=== PATIENT | female | born 1970 | race Caucasian/White ===

== ENCOUNTER 2020-03-14 12:53 | Outpatient (CLI) | payer OTHER, SELFPAY ==
--- NOTE | 2020-03-14 13:06 | XR_ITS ---
WS: [id number] CERVICAL SPINE TECHNIQUE: 3 views of the cervical spine CLINICAL INFORMATION: CERVICAL SPINE PAIN COMPARISON: None. FINDINGS: Straightening of the normal cervical lordosis. Normal C1-2 articulation. Slight anterolisthesis C4 on C5 measuring 1.6 mm. Normal prevertebral soft tissues. Mild cervical curve convex left. Mild facet a rthropathy. Normal C1-2 articulation. XR/XR cervical spine 3V* [id number] IMPRESSION: 1. Straightening of the normal cervical lordosis with mild spondylitic changes . 2. Minimal disc space narrowing C5-C6 and C6-C7. 3. Trace anterolisthesis C4 on C5 measuring 1.6mm 4. Mild facet arthropathy mid thoracic spine. 5. No other significant findings.
--- NOTE | 2020-03-14 13:06 | XR_ITS ---
WS: [id number] THORACIC SPINE TECHNIQUE: 3 views of the thoracic spine CLINICAL INFORMATION: BACK PAIN, THORACIC COMPARISON: None. FINDINGS: Mild thoracic curve convex right in the mid thoracic spine. No acute appearing compression fractures. Disc space heights and vertebral body heights are well preserved. Visualized lungs are well aerated. XR/XR thoracic spine 3V* [id number] IMPRESSION: Mild thoracic curve convex right. No acute thoracic spine findings.
== END 2020-03-14 12:54 | disposition home or self-care (01) ==
PROVIDERS: Family Provider Family Medicine; PCP Nurse Practitioner Family; Visit Provider Family Medicine
DX: M54.6 Pain in thoracic spine (principal); M54.2 Cervicalgia; M47.814 Spondylosis without myelopathy or radiculopathy, thoracic region
CPT/HCPCS: 72040; 72072

== ENCOUNTER 2020-04-07 08:40 | Outpatient (CLI) | payer OTHER, SELFPAY ==
--- NOTE | 2020-04-07 08:42 | MM_ITS ---
WS: [id number] SCREENING DIGITAL MAMMOGRAM WITH CAD HISTORY: SCREENING COMPARISON: 12/13/2015 Bilateral CC and MLO views submitted. Computer aided detection analyzed. Breast composition: There are scattered areas of fibroglandular density. Increasing density and calci fication upper-outer quadrant of the LEFT breast. There are scattered ill-defined calcifications now present within this area of increasing density. Mild distortion suspected on the CC projection. Other stiles normal parenchyma. LEFT breast: Spot compression views (CC and MLO). True ML. Ultrasound to follow if abnormality perskmailah ts. Additional magnification views LEFT breast upper outer quadrant. MM/[place] [id number] IMPRESSION: BI-RADS: 0-Incomplete: Need additional imaging evaluation FOLLOW UP: Need Additional Imaging
== END 2020-04-07 08:41 | disposition home or self-care (01) ==
LOC: RADSHAW 08:40
PROVIDERS: PCP Family Medicine; Visit Provider Family Medicine
DX: Z12.31 Encounter for screening mammogram for malignant neoplasm of breast (principal); R92.1 Mammographic calcification found on diagnostic imaging of breast
CPT/HCPCS: 77067

== ENCOUNTER 2020-04-29 09:43 | Outpatient (CLI) | payer OTHER, SELFPAY ==
--- NOTE | 2020-04-29 10:02 | US_ITS ---
WS: [id number] ADDITIONAL VIEWS LEFT MAMMOGRAM LEFT BREAST ULTRASOUND HISTORY: ABNORMAL MAMMO COMPARISON: 12/13/2015 LEFT MAMMOGRAM: Spot compression views and true ML. Focal asymmetry persists in the upper outer quadrant. Asymmetry appears slightly more prominent than on the prior studies. There are also calcifications within this asymmetry which have increased in siz e and number. No nipple retraction. LEFT BREAST ULTRASOUND 2-D and color Doppler imaging submitted. Ultrasound directed to the upper outer quadrant of the LEFT breast. Near 12:00, 1 cm from the nipple is a hypoechoic area measuring 8 x 4 x 5 mm with no increased vascularity. Dense fibroglandular tissu e with a few cystic areas in the upper outer quadrant towards the axillary tail. 2. Ultrasound-guided biopsy recommended of the ovoid hypoechoic nodule at 12:00, 1 cm from the nippl e. Notified Fer Harris Jr, MD at 04/29/2020 1:48 PM. Spoke with Carmita. US/US breast LT limited* [id number] IMPRESSION: BI-RADS: 4B-Suspicious: Intermediate FOLLOW UP: Biopsy Recommended 1. Stereotactic biopsy recommended of the LEFT breast calcifications in the up per outer quadrant.
== END 2020-04-29 09:44 | disposition home or self-care (01) ==
LOC: RADSHAW 09:47
PROVIDERS: PCP Family Medicine; Visit Provider Family Medicine
DX: R92.1 Mammographic calcification found on diagnostic imaging of breast (principal); N64.89 Other specified disorders of breast; N63.25 Unspecified lump in the left breast, overlapping quadrants
CPT/HCPCS: 76642; 77065

== ENCOUNTER 2020-05-11 12:14 | Outpatient (CLI) | payer OTHER, SELFPAY ==
--- NOTE | 2020-05-11 12:21 | MM_ITS ---
WS: [id number] STEREOTACTIC LEFT BREAST BIOPSY WITH VACUUM ASSISTANCE HISTORY: LT BREAST NODULE COMPARISON: 04/29/2020, 04/07/2020 Procedure, risks and complications were explained to the patient. Medications and prior radiographs a re reviewed. LEFT breast breast increased density with calcifications upper outer quadrant is located. Calcificati ons and dense fibroglandular tissue is targeted in the craniocaudal projection. The skin is cleansed with ChloraPrep and anesthetized with 1% buffered lidocaine. Deeper soft tissues anesthetized with a combination of lidocaine and epinephrine. Small dermatome is made. Needle advanced into the breast. S tereotactic imaging reveals appropriate positioning adjacent calcifications. Multiple vacuum-assisted core biopsies are obtained. Biopsy was performed in 2 separate areas of this dense fibroglandular ti ssue. No complications were encountered. Post biopsy specimen radiograph reveals very few scattered calcifications. Single biopsy clip is placed in the cavity. Post imaging reveals good placement of the clip. No migra tion. Pressures held for approximately 15 minutes. No bleeding. Dressing applied. Patient discharged with n o complications. There is no bleeding. With any questions or complications patient is to return. MM/[place] [id number] IMPRESSION: 1. Uncomplicated LEFT breast stereotactic biopsy. Biopsy was performed in 2 se parate areas of the dense fibroglandular density with a few calcifications in t he LEFT upper outer quadrant. 2. Specimen contains a few scattered calcifications. Pathology: Benign breast tissue with fibrocystic changes. Stromal fibrosis. No malignancy. RECOMMENDATION: Return to annual screening mammogram.
--- NOTE | 2020-05-11 12:21 | MM_ITS ---
WS: [id number] STEREOTACTIC LEFT BREAST BIOPSY WITH VACUUM ASSISTANCE HISTORY: LT BREAST NODULE COMPARISON: 04/29/2020, 04/07/2020 Procedure, risks and complications were explained to the patient. Medications and prior radiographs a re reviewed. LEFT breast breast increased density with calcifications upper outer quadrant is located. Calcificati ons and dense fibroglandular tissue is targeted in the craniocaudal projection. The skin is cleansed with ChloraPrep and anesthetized with 1% buffered lidocaine. Deeper soft tissues anesthetized with a combination of lidocaine and epinephrine. Small dermatome is made. Needle advanced into the breast. S tereotactic imaging reveals appropriate positioning adjacent calcifications. Multiple vacuum-assisted core biopsies are obtained. Biopsy was performed in 2 separate areas of this dense fibroglandular ti ssue. No complications were encountered. Post biopsy specimen radiograph reveals very few scattered calcifications. Single biopsy clip is placed in the cavity. Post imaging reveals good placement of the clip. No migra tion. Pressures held for approximately 15 minutes. No bleeding. Dressing applied. Patient discharged with n o complications. There is no bleeding. With any questions or complications patient is to return. MM/MM biopsy LT vac assist [id number] IMPRESSION: 1. Uncomplicated LEFT breast stereotactic biopsy. Biopsy was performed in 2 se parate areas of the dense fibroglandular density with a few calcifications in t he LEFT upper outer quadrant. 2. Specimen contains a few scattered calcifications. Pathology: Benign breast tissue with fibrocystic changes. Stromal fibrosis. No malignancy. RECOMMENDATION: Return to annual screening mammogram.
--- NOTE | 2020-05-11 12:21 | MM_ITS ---
WS: [id number] STEREOTACTIC LEFT BREAST BIOPSY WITH VACUUM ASSISTANCE HISTORY: LT BREAST NODULE COMPARISON: 04/29/2020, 04/07/2020 Procedure, risks and complications were explained to the patient. Medications and prior radiographs a re reviewed. LEFT breast breast increased density with calcifications upper outer quadrant is located. Calcificati ons and dense fibroglandular tissue is targeted in the craniocaudal projection. The skin is cleansed with ChloraPrep and anesthetized with 1% buffered lidocaine. Deeper soft tissues anesthetized with a combination of lidocaine and epinephrine. Small dermatome is made. Needle advanced into the breast. S tereotactic imaging reveals appropriate positioning adjacent calcifications. Multiple vacuum-assisted core biopsies are obtained. Biopsy was performed in 2 separate areas of this dense fibroglandular ti ssue. No complications were encountered. Post biopsy specimen radiograph reveals very few scattered calcifications. Single biopsy clip is placed in the cavity. Post imaging reveals good placement of the clip. No migra tion. Pressures held for approximately 15 minutes. No bleeding. Dressing applied. Patient discharged with n o complications. There is no bleeding. With any questions or complications patient is to return. MM/MM surgical specimen LT IMPRESSION: 1. Uncomplicated LEFT breast stereotactic biopsy. Biopsy was performed in 2 se parate areas of the dense fibroglandular density with a few calcifications in t he LEFT upper outer quadrant. 2. Specimen contains a few scattered calcifications. Pathology: Benign breast tissue with fibrocystic changes. Stromal fibrosis. No malignancy. RECOMMENDATION: Return to annual screening mammogram.
== END 2020-05-11 12:15 | disposition home or self-care (01) ==
LOC: RADSHAW 12:16
PROVIDERS: PCP Family Medicine; Visit Provider Nurse Practitioner Family
DX: R92.1 Mammographic calcification found on diagnostic imaging of breast (principal); N60.32 Fibrosclerosis of left breast; D24.2 Benign neoplasm of left breast
CPT/HCPCS: 19081; 77065; 88305

== ENCOUNTER 2020-05-12 09:53 | Outpatient (CLI) | payer OTHER, SELFPAY ==
--- NOTE | 2020-05-12 09:58 | US_ITS ---
WS: [id number] ULTRASOUND-GUIDED LEFT BREAST BIOPSY HISTORY: LUMP IN LEFT BREAST, mass 12:00 1 cm from the nipple. COMPARISON: 04/29/2020 Procedure, risks and complications are explained to the patient. Medications are reviewed. Consent is obtained. The mass in the LEFT breast is localized with ultrasound. Skin is cleansed with ChloraPrep and anesth etized with 1% buffered lidocaine. Small dermatome is made. Under sterile conditions mass is biopsied with a 14-gauge Achieve needle. Multiple core biopsies are performed. Material placed in formalin an d sent to pathology for review. No complications encountered. Breast tissue marker (Sentrinsic ultrasound enhanced ribbon): Single. Patient left the radiology suite with no complications. Patient is instructed to [place] [facility] [place] [facility] with any concerns. 1. Uncomplicated core needle biopsy LEFT breast mass at 12:00, 1 cm from the nipple. 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 RECOMMENDATION: Return to annual screening mammogram.
== END 2020-05-12 09:54 | disposition home or self-care (01) ==
LOC: RAD 09:55
PROVIDERS: PCP Family Medicine; Visit Provider Family Medicine
DX: N63.20 Unspecified lump in the left breast, unspecified quadrant (principal); D24.2 Benign neoplasm of left breast
CPT/HCPCS: 19083

== ENCOUNTER 2020-05-26 14:37 | Outpatient (CLI) | payer OTHER, SELFPAY ==
--- NOTE | 2020-05-26 14:42 | US_ITS ---
WS: [id number] ULTRASOUND LEFT BREAST HISTORY: HEMATOMA/? INFECTION COMPARISON: 05/12/2020 and 04/29/2020 TECHNIQUE: 2-D and Doppler. Patient has recently undergone biopsies of the LEFT breast. There is an elongated tubular collection at 1:00 at the area the skin discoloration mildly complex material. This collection measures 3.7 x 2. 5 x 4.9 cm. No increased vascularity. This has more of a typical appearance of a hematoma or liquefyi ng hematoma instead of an abscess. There is no increased vascularity. Complex fluid collection the LEFT breast at 1:00 is most likely a hematoma/liquefying hematoma versus an abscess. For further evaluation aspiration of this collection with culture and Gram stain can be obtained if necessary. If this is a hematoma in may be difficult to aspirate. Partial aspiration may help this hematoma resolved. US/US breast LT limited* [id number] IMPRESSION: BI-RADS: 2-Benign FOLLOW-UP: See Report
== END 2020-05-26 14:38 | disposition home or self-care (01) ==
LOC: RAD 14:40
PROVIDERS: PCP Family Medicine; Visit Provider Nurse Practitioner Family
DX: S20.02XA Contusion of left breast, initial encounter (principal); X58.XXXA Exposure to other specified factors, initial encounter
CPT/HCPCS: 76642

== ENCOUNTER 2020-07-28 12:52 | Emergency (ER) | payer OTHER, SELFPAY ==
[2020-07-28 12:57] VITALS: BP 156/108; PULSE 97; RESP 14; TEMP 36.5; O2SAT 98; BMI 25.9
--- NOTE | 2020-07-28 13:25 | CT_ITS ---
WS: [id number] CT scan of the head, 07/28/2020 Clinical Data: hypertensive urgency, headache dizziness Comparison: CT head, 04/05/2018. DLP: 761.[address] scans at [facility] use at least one of these dose optimization techniques: automat ed exposure control; mA and/or kV adjustment per patient size (includes targeted exams where dose is matched to clinical indication); or iterative reconstruction. Findings: The ventricular system is normal without shift. No recent infarct or hemorrhage is seen. There are no abnormal intracerebral masses. The cerebellum and brainstem are not remarkable. Bony windows of the skull and skull base show no fractures or erosions. The mastoid air cells, manager intern al auditory canals, sella turcica, intraorbital contents, and paranasal sinuses are unremarkable. CT/CT head wo con* [id number] Impression: Negative CT scan of the head
--- NOTE | 2020-07-28 13:25 | XR_ITS ---
WS: [id number] Portable AP upright chest, 07/28/2020 Clinical Data: chest pain Comparison: PA and lateral chest, 09/10/2019. Findings: No nodules, masses or effusions are seen. The heart is normal. The pulmonary vascularity is not increased. No pneumonia or pneumothorax is seen. XR/XR chest 1V portable [id number] Impression: Negative chest.
--- NOTE | 2020-07-28 13:28 | ECG_ITS ---
[facility] Test Date: 2020-07-28 Pat Name: Christine Rico Department: Room: Gender: Female Utility Manager: : 1970 Requested By: Raysa Huntley I Order Number: [id number] Osei MD: Jin Bermeo M.D. Measurements Intervals [place] Rate: 80 P: 44 WA: 130 QRS: 75 QRSD: 77 T: 66 QT: 371 QTc: 428 Interpretive Statements SINUS RHYTHM No previous ECG available for comparison Electronically Signed On 07-28-2020 18:21:53 CDT by Jin Bermeo M.D. [id number]
--- NOTE | 2020-07-28 13:29 | W.ED.GENADLT ---
HPI - General Adult General: Chief complaint: General Medical Stated complaint: High BP Time Seen by Provider: 07/28/20 13:02 Source: patient Mode of arrival: ambulatory Limitations: no limitations History of Present Illness: HPI narrative: Patient is a 50-year-old female with a history of hypertension and hypothyroidism who presents to the emergency department with complaints of sustained diastolic hypertension. She says her diastolic blood pressure has been above 104 and now sometimes got into the 110's. The only medication she takes for blood pressure is amlodipine. She does not know the dose. She has also had episodes of dizziness, right arm pain, headache. When she contacted her primary care provider they asked her to come to emergency department for evaluation Associated symptoms: Reports headache(s); Deny dyspnea, nausea, rash, palpitations or vomiting Review of Systems General: Reports: 10 or more systems reviewed and unremarkable except in HPI and below Const: Denies: fever(s), chills or body aches Eyes: Denies: change in vision or blurry vision ENMT: Denies: throat pain, enlarged tonsils, odynophagia, hoarseness, mouth pain or swelling of lips/tongue Card: Denies: palpitations, irregular heart rhythm, edema or swelling of feet/ankles Resp: Denies: dyspnea, productive cough or non-productive cough GI: Denies: abdominal pain, nausea or vomiting : Denies: flank pain, difficulty voiding, dysuria, urinary frequency, urinary urgency or urinary hesitancy Musc: Denies: neck pain, back pain or extremity swelling Skin/Breast: Denies: rash, pruritus or erythema Neuro: Reports: headache(s) and dizziness; Denies: numbness in extremities or weakness in extremities Endo: Denies: polyuria, polydipsia or tired all the time PFS ED PFSH: Family History (Reviewed 07/28/20 @ 13:34 by Raysa Huntley MD, [facility] [place]) Family/Other Cancer Breast, Colon Hyperlipidemia Social History (Reviewed 07/28/20 @ 13:34 by Raysa Huntley MD, [facility] [place]) Smoking and tobacco status: former smoker Alcohol intake: never Physical Exam Const: COMMON NORMALS: no acute distress, average body habitus, patient oriented x3, no limitations, healthy appearing, alert and well nourished HENMT: COMMON NORMALS: normocephalic, atraumatic and moist oral mucous membranes HEAD & SCALP: normocephalic and atraumatic Eye: COMMON NORMALS: Equal, round and reactive pupils present, EOMs intact bilaterally, conjunctivae normal and no scleral icterus CONJUNCTIVA: Yes conjunctivae normal PUPIL: Yes Equal, round and reactive pupils present Neck/C-Spine: COMMON NORMALS: full ROM, supple, no meningeal signs, no JVD and No carotid bruits Resp: COMMON NORMALS: normal respiratory effort, No retractions, No use of accessory muscles, clear to auscultation bilaterally and percussion normal AUSCULTATION: clear to auscultation bilaterally PERCUSSION: percussion normal Cardio: COMMON NORMALS: no JVD, regular rate, regular rhythm, S1 normal heart sound present, S2 normal heart sound present, No gallops present (Cardio), No clicks present (Cardio), No murmurs present (Cardio), No rub (Cardio) and Peripheral pulses 2+ throughout RATE: regular rate RHYTHM: regular rhythm HEART SOUNDS: S1 normal heart sound present and S2 normal heart sound present PERIPHERAL PULSES: Peripheral pulses 2+ throughout GI: COMMON NORMALS: Normal to inspection, nondistended, normoactive bowel sounds present, Soft to palpation, non-tender, No hepatosplenomegaly present, no masses and no bruits PALPATION: Yes Soft to palpation and Yes No hepatosplenomegaly present Extremity: COMMON NORMALS: normal to inspection, full ROM, capillary refill normal, no calf tenderness and no pedal edema Neuro: COMMON NORMALS: patient oriented x3 SENSORIUM/ORIENTATION: Yes alert MENINGEAL SIGNS: Yes no meningeal signs Skin: COMMON NORMALS: no rashes or lesions noted, no wounds, turgor normal, no jaundice, no petechiae and no mottling GENERAL SKIN EXAM: no rashes or lesions noted and turgor normal Course Reevaluation(s): Reevaluation #1: Discussed her lab and imaging findings with her. All negative so far. The only pending lab is her urinalysis and she is yet to produce urine. Blood pressure is 122/86 now with no intervention. Patient states she has not seen a dislocated very long time. We will wait for her urinalysis and if negative we will send her home. She voiced understanding and is in agreement with the plan. I advised that she possibly needs a second medication and should talk to her primary care provider about that. Time: 15:33 Vital Signs: Vital signs: Vital Signs Temperature 97.7 F 07/28/20 12:57 Pulse Rate 80 07/28/20 17:07 Respiratory Rate 16 07/28/20 17:07 Blood Pressure 131/79 07/28/20 17:07 Pulse Oximetry 99 07/28/20 17:07 MDM - General Adult MDM Narrative: Medical decision making narrative: Patient with hypertensive urgency. She was largely asymptomatic on evaluation unremarkable. She is discharged home with no new orders and she is to follow-up with her primary care provider for adjustment of her antihypertensives. Medical Records: Attestation: I reviewed the patient's medical records. Lab Data: Attestation: I reviewed the patient's lab results. Labs: Lab Results 07/28/20 07/28/20 07/28/20 Range/Units 13:44 13:44 13:44 WBC 9.8 (4.0-10.0) 10^3/ uL RBC 3.76 L (4.1-5.3) 10^6/u L Hgb 13.0 (11.5-15.3) g/dL Hct 39.2 (37.0-47.0) % MCV 104.3 H (81-99) fL MCH 34.6 H (28.0-34.0) pg MCHC 33.2 (30.0-36.0) g/dL RDW 12.1 (12.1-15.1) % Plt Count 313 (130-400) 10^3/c mm MPV 9.4 (7.4-10.4) fL Neut % (Auto) 63.9 % Lymph % (Auto) 22.7 % Meeker % (Auto) 11.5 % Eos % (Auto) 0.8 % Baso % (Auto) 0.5 % Neut # (Auto) 6.24 (1.8-7.7) 10^3/u L Lymph # (Auto) 2.2 (0.8-4.8) 10^3/u L Meeker # (Auto) 1.1 H (0.2-0.9) 10^3/u L Eos # (Auto) 0.1 (0.0-0.8) 10^3/u L Baso # (Auto) 0.1 (0.0-0.1) 10^3/u L Nucleated RBC % (a uto) 0 % Nucleated RBCs # 0.0 /100WBC Sodium 134 L (136-145) mmol/L Potassium 4.4 (3.5-5.1) mmol/L Chloride 100 (98-107) mmol/L Carbon Dioxide 23 (22-29) mmol/L Anion Gap 15.4 (5-19) BUN 11 (6-20) mg/dL Creatinine 0.8 (0.5-0.9) mg/dL GFR Calculation 76.6 L (90-130) mL/min Glucose 109 (65-115) mg/dL Calculated Osmolal ity 278 L (285-295) mOsm/k g Calcium 9.5 (8.5-10.5) mg/dL Magnesium (1.7-2.3) mg/dL Total Bilirubin 0.4 (0.15-1.2) mg/dL AST 28 (0-32) U/L ALT 30 (0-33) U/L Alkaline Phosphata se 67 (35-105) IU/L Troponin T Baselin e 6 (0-10) ng/L Total Protein 6.6 (6.6-8.7) g/dL Albumin 4.2 (3.5-5.2) g/dL Globulin 2.4 (1.3-4.6) g/dL Lipase 23 (13-60) U/L TSH 1.12 (0.27-4.20) uIU/ mL Urine Color (Yellow) Urine Appearance (CLEAR) Urine pH (5-7) Ur Specific Gravit y (1.005-1.030) Urine Protein (Negative) Urine Glucose (UA) (Normal) Urine Ketones (Negative) Urine Blood (Negative) Urine Nitrate (Negative) Urine Bilirubin (Negative) Urine Urobilinogen (Negative) mg/dL Ur Leukocyte Mary ase (Negative) Urine RBC (0-2) /hpf Urine WBC (0-5) /hpf Ur Squamous Epith Cells (0-5) /hpf Ur Transition Epit h Cell /hpf Amorphous Sediment Urine Bacteria (NONE) /hpf 07/28/20 07/28/20 Range/Units 13:44 15:40 WBC (4.0-10.0) 10^3/ uL RBC (4.1-5.3) 10^6/u L Hgb (11.5-15.3) g/dL Hct (37.0-47.0) % MCV (81-99) fL MCH (28.0-34.0) pg MCHC (30.0-36.0) g/dL RDW (12.1-15.1) % Plt Count (130-400) 10^3/c mm MPV (7.4-10.4) fL Neut % (Auto) % Lymph % (Auto) % Meeker % (Auto) % Eos % (Auto) % Baso % (Auto) % Neut # (Auto) (1.8-7.7) 10^3/u L Lymph # (Auto) (0.8-4.8) 10^3/u L Meeker # (Auto) (0.2-0.9) 10^3/u L Eos # (Auto) (0.0-0.8) 10^3/u L Baso # (Auto) (0.0-0.1) 10^3/u L Nucleated RBC % (a uto) % Nucleated RBCs # /100WBC Sodium (136-145) mmol/L Potassium (3.5-5.1) mmol/L Chloride (98-107) mmol/L Carbon Dioxide (22-29) mmol/L Anion Gap (5-19) BUN (6-20) mg/dL Creatinine (0.5-0.9) mg/dL GFR Calculation (90-130) mL/min Glucose (65-115) mg/dL Calculated Osmolal ity (285-295) mOsm/k g Calcium (8.5-10.5) mg/dL Magnesium 1.8 (1.7-2.3) mg/dL Total Bilirubin (0.15-1.2) mg/dL AST (0-32) U/L ALT (0-33) U/L Alkaline Phosphata se (35-105) IU/L Troponin T Baselin e (0-10) ng/L Total Protein (6.6-8.7) g/dL Albumin (3.5-5.2) g/dL Globulin (1.3-4.6) g/dL Lipase (13-60) U/L TSH (0.27-4.20) uIU/ mL Urine Color Yellow (Yellow) Urine Appearance Hazy A (CLEAR) Urine pH 5 (5-7) Ur Specific Gravit y 1.010 (1.005-1.030) Urine Protein Neg (Negative) Urine Glucose (UA) Norm (Normal) Urine Ketones 1+ H (Negative) Urine Blood 2+ H (Negative) Urine Nitrate Negative (Negative) Urine Bilirubin Neg (Negative) Urine Urobilinogen Norm (Negative) mg/dL Ur Leukocyte Mary ase Negative (Negative) Urine RBC 0-4 H (0-2) /hpf Urine WBC None (0-5) /hpf Ur Squamous Epith Cells 10-15 H (0-5) /hpf Ur Transition Epit h Cell 0-4 /hpf Amorphous Sediment Not Reportable Urine Bacteria Trace (NONE) /hpf Imaging Data^: CXR: Attestation: I personally reviewed and interpreted this imaging study as follows: Radiologist's impression: [address] [address] XRay Report Signed Patient: Christine Rico #: [id number] : 1970Acct#:[id number] Age/Sex: 50 / FADM Date: 07/28/20 Loc: ERRoom/Bed: Attending Dr: Ordering Provider/Ordering MD: Raysa Huntley MD, [facility] [place] Date of Service: 07/28/20 Procedure(s): XR chest 1V portable [id number] Accession Number(s): [id number] Report Number: [id number] WS: [id number] Portable AP upright chest, 07/28/2020 Clinical Data: chest pain Comparison: PA and lateral chest, 09/10/2019. Findings: No nodules, masses or effusions are seen. The heart is normal. The pulmonary vascularity is not increased. No pneumonia or pneumothorax is seen. XR/XR chest 1V portable [id number] Impression: Negative chest. Dictated By:Layne Aquino MD Signed By:Layne Aquino MDSigned Date/Time:07/28/20 1357 DD/ 1357 CT Head: Attestation: I personally reviewed and interpreted this imaging study as follows: Radiologist's impression: [address] [place] [address] CT Scan Report Signed Patient: Christine Rico #: [id number] : 1970Acct#:[id number] Age/Sex: 50 / FADM Date: 07/28/20 Loc: ERRoom/Bed: Attending Dr: Ordering Provider/Ordering MD: Raysa Huntley MD, [facility] [place] Date of Service: 07/28/20 Procedure(s): CT head wo con* [id number] Accession Number(s): [id number] Report Number: [id number] WS: [id number] CT scan of the head, 07/28/2020 Clinical Data: hypertensive urgency, headache dizziness Comparison: CT head, 04/05/2018. DLP: 761.[address] scans at [facility] use at least one of these dose optimization techniques: automated exposure control; mA and/or kV adjustment per patient size (includes targeted exams where dose is matched to clinical indication); or iterative reconstruction. Findings: The ventricular system is normal without shift. No recent infarct or hemorrhage is seen. There are no abnormal intracerebral masses. The cerebellum and brainstem are not remarkable. Bony windows of the skull and skull base show no fractures or erosions. The mastoid air cells, internal auditory canals, sella turcica, intraorbital contents, and paranasal sinuses are unremarkable. CT/CT head wo con* [id number] Impression: Negative CT scan of the head Dictated By:Layne Aquino MD Signed By:Layne Aquino MDSigned Date/Time:07/28/20 1346 DD/ 1344 EKG Data^: EKG 1: Attestation: I personally reviewed and interpreted this EKG as follows: EKG interpretation date: 07/28/20 EKG interpretation time: 13:46 Prior EKG tracings: not available for review Interpretation: Normal sinus rhythm. Heart rate [address] changes. Normal EKG. Computer generated interpretation: Chest X-Ray 07/28/20 13:25 Impression: Negative chest. Head CT 07/28/20 13:25 Impression: Negative CT scan of the head EKG 2: Attestation: I personally reviewed and interpreted this EKG as follows: EKG interpretation date: 07/28/20 EKG interpretation time: 15:37 Prior EKG tracings: available for review Interpretation: Normal sinus rhythm. Heart rate [address] changes. Normal axis. Computer generated interpretation: Chest X-Ray 07/28/20 13:25 Impression: Negative chest. Head CT 07/28/20 13:25 Impression: Negative CT scan of the head Discharge Plan Discharge Patient Disposition: Home Clinical Impression: Hypertensive urgency Condition: Stable Discharge Orders: Discharge Order (Routine); Ordered 07/28/20 Ordered By: Raysa Huntley Referrals: Fer Harris Jr, MD [Primary Care Provider] - 1-3 days Discharge Diet: Usual diet Discharge Activity: Resume usual activity Patient Instructions: Chronic Hypertension (ED) Activity Restrictions/Additional Instructions: Return for any new or worsening symptoms. Follow-up with your primary care provider within 3 days. You will likely need an additional medication to help control your blood pressure a little better. Discharge Date/Time: 07/28/20 17:08 Coding Level of Care Code ED Switch Operators Supervisor for Chg Fwd Exam Comprehensive
[2020-07-28] MEDS: ondansetron 2 mg/ML SDV 2 mL 4 MG IVP (13:46)
[2020-07-28 13:53] LABS: Basophils # 0.1 10^3/uL (0.0-0.1); Basophils % 0.5 %; Eosinophils # 0.1 10^3/uL (0.0-0.8); Eosinophils % 0.8 %; Hematocrit 39.2 % (37.0-47.0); Lymphocytes # 2.2 10^3/uL (0.8-4.8); Lymphocytes % 22.7 %; Mean Corpuscular HGB Conc 33.2 g/dL (30.0-36.0); Mean Corpuscular Hemoglobin 34.6 pg (28.0-34.0); Mean Corpuscular Volume 104.3 fL (81-99); Mean Platelet Volume 9.4 fL (7.4-10.4); Monocytes # 1.1 10^3/uL (0.2-0.9); Monocytes % 11.5 %; Neutrophils # 6.24 10^3/uL (1.8-7.7); Neutrophils % 63.9 %; Nucleated Red Blood Cells % 0 %; Platelet Count 313 10^3/cmm (130-400); Red Blood Count 3.76 10^6/uL (4.1-5.3); Red Cell Distribution Width 12.1 % (12.1-15.1); White Blood Count 9.8 10^3/uL (4.0-10.0)
[2020-07-28 14:14] VITALS: BP 134/91
[2020-07-28 14:20] LABS: Troponin(5th) Baseline 6 ng/L (0-10)
[2020-07-28 14:27] LABS: Alanine Aminotransferase 30 U/L (0-33); Albumin Level 4.2 g/dL (3.5-5.2); Alkaline Phosphatase 67 IU/L (35-105); Aspartate Amino Transferase 28 U/L (0-32); Blood Urea Nitrogen 11 mg/dL (6-20); Calcium 9.5 mg/dL (8.5-10.5); Carbon Dioxide 23 mmol/L (22-29); Chloride 100 mmol/L (98-107); Globulin 2.4 g/dL (1.3-4.6); Glomerular Filtration Rate 76.6 mL/min (90-130); Glucose 109 mg/dL (65-115); Lipase 23 U/L (13-60); Osmolality Calculated 278 mOsm/kg (285-295); Sodium 134 mmol/L (136-145); Thyroid Stimulating Hormone 1.12 uIU/mL (0.27-4.20); Total Bilirubin 0.4 mg/dL (0.15-1.2); Total Protein 6.6 g/dL (6.6-8.7)
[2020-07-28 14:35] LABS: Anion Gap 15.4 (5-19); Potassium 4.4 mmol/L (3.5-5.1)
--- NOTE | 2020-07-28 15:28 | ECG_ITS ---
[facility] Test Date: 2020-07-28 Pat Name: Christine Rico Department: Room: Gender: Female Motor Polarizer: : 1970 Requested By: Raysa Huntley I Order Number: [id number] Osei MD: Jin Bermeo M.D. Measurements Intervals [place] Rate: 87 P: 27 FL: 138 QRS: 57 QRSD: 77 T: 53 QT: 368 QTc: 443 Interpretive Statements SINUS RHYTHM LOW QRS VOLTAGE IN PRECORDIAL LEADS [QRS DEFLECTION < 1.0 mV IN CHEST LEADS] NONSPECIFIC T-WAVE ABNORMALITY Compared to ECG 07/28/2020 13:46:37 Low QRS voltage now present T-wave abnormality now present Electronically Signed On 07-28-2020 18:27:38 CDT by Jin Bermeo M.D. [id number] f
[2020-07-28 15:32] VITALS: BP 122/86; PULSE 95; RESP 18; O2SAT 97
[2020-07-28 15:45] LABS: Magnesium 1.8 mg/dL (1.7-2.3)
[2020-07-28 16:53] LABS: Glucose Urine UA Norm (Normal); Ketones Urine 1+ (Negative); Protein Urine Neg (Negative); Urine Appearance Hazy (CLEAR); Urine Color Yellow (Yellow); pH Urine 5 (5-7)
[2020-07-28 16:54] LABS: Add Urine Microscopic? YES; Bilirubin Urine Neg (Negative); Blood Urine 2+ (Negative); Leukocyte Esterase Urine Negative (Negative); Nitrate Urine Negative (Negative); Urobilinogen Urine Norm (Negative)
[2020-07-28 16:55] LABS: Add Urine Culture? No; Bacteria Urine TRACE /hpf; RBC Urine 0-4 /hpf (0-2); Transitional Epi Cells Urine 0-4 /hpf
[2020-07-28 17:07] VITALS: BP 131/79; PULSE 80; RESP 16; O2SAT 99
== END 2020-07-28 17:08 | disposition home or self-care (01) ==
PROVIDERS: Emergency Provider Family Medicine; PCP Family Medicine
DX: I16.0 Hypertensive urgency (principal); Z87.891 Personal history of nicotine dependence
CPT/HCPCS: 12345; 70450; 71045; 80053; 81001; 83690; 83735; 84443; 84484; 85025; 93005; 96374; 96375; 99283; J2405

== ENCOUNTER 2020-08-31 09:48 | Outpatient (CLI) | payer OTHER, SELFPAY ==
--- NOTE | 2020-08-31 10:11 | XR_ITS ---
WS: [id number] XR ribs RT mn 3V w CXR1V [id number] REASON FOR EXAM: MID BACK PAIN ON R SIDE/DORSALGIA FINDINGS: The heart and mediastinum are within normal limits. Calcified granulomatous changes in both hemithoraces. No active pulmonary parenchymal or pleural disease noted. Bony thorax is intact. XR/XR ribs RT mn 3V w CXR1V [id number] IMPRESSION: No acute chest abnormality. .
== END 2020-08-31 09:49 | disposition home or self-care (01) ==
PROVIDERS: PCP Family Medicine; Visit Provider Nurse Practitioner Family
DX: M54.9 Dorsalgia, unspecified (principal); Z91.89 Other specified personal risk factors, not elsewhere classified
CPT/HCPCS: 71101

== ENCOUNTER 2020-09-08 12:32 | Outpatient (CLI) | payer OTHER, SELFPAY ==
--- NOTE | 2020-09-08 12:38 | XR_ITS ---
WS: [id number] Right rib detail, 09/08/2020 Clinical Data: DORSALGIA UNSPECIFIED Comparison: None. Findings: No rib fractures are seen. There is no pneumothorax or subcutaneous emphysema. The adjacent right edwin g is unremarkable. The soft tissues are normal. XR/XR ribs RT 2V* [id number] Impression: Negative right rib detail.
== END 2020-09-08 12:33 | disposition home or self-care (01) ==
PROVIDERS: PCP Nurse Practitioner Family; Visit Provider Nurse Practitioner Family
DX: M54.9 Dorsalgia, unspecified (principal)
CPT/HCPCS: 71100